=== PATIENT | female | born 1980 | race Caucasian/White ===

== ENCOUNTER 2017-10-10 12:02 | Emergency (ER) | END 2017-10-10 13:45 | disposition home or self-care (01) ==

== ENCOUNTER 2018-01-03 22:50 | Emergency (ER) | END 2018-01-04 03:16 | disposition home or self-care (01) ==

== ENCOUNTER 2019-02-10 14:50 | Emergency (ER) | payer MEDICAID ==
[~2019-02-10] VITALS: Ht 154.9 cm; Wt 60.6 kg
[~2019-02-10 14:50] MED LIST: ACET325T33 PO; AMOX500C2 PO; BEN25 PO; CEPH-443 PO; CETI10CA PO; IBUP-1542 PO
[2019-02-10 15:18] VITALS: BP 112/58; PULSE 73; RESP 16; Ht 154.9 cm; Wt 60.6 kg
--- NOTE | 2019-02-10 17:45 | ERD ---
ER Documentation Chief Complaint Chief Complaint pelvic pain x3d. no VB, no NVD. 5 wks . HPI This is a 38-year-old female patient who presents emergency room with complaint of lower pelvis pain. She is 5 weeks . Denies vaginal bleeding, no vaginal discharge, no nausea, no vomiting, no fevers. ROS All systems reviewed and are negative except as per history of present illness. Medications Home Meds Active Scripts Cephalexin* (Keflex*) 500 Mg Capsule, 500 MG PO BID for 7 Days, #14 CAP Prov:GERARDO BRYAN NP 02/10/19 Diphenhydramine Hcl* (Benadryl*) 25 Mg Cap, 25 MG PO Q6, #30 CAP Prov:RONNY,CONCEPCIÓN 01/04/18 Cetirizine Hcl* (Zyrtec*) 10 Mg Capsule, 10 MG PO DAILY, #10 TAB.CHEW Prov:RONNY,CONCEPCIÓN 01/04/18 Amoxicillin* (Amoxicillin*) 500 Mg Cap, 500 MG PO TID for 10 Days, CAP Prov:JESSE MARIE MD 10/10/17 Ibuprofen* (Motrin*) 600 Mg Tab, 600 MG PO Q6, #15 TAB Prov:JESSE MARIE MD 10/10/17 Allergies Allergies: Coded Allergies: No Known Allergy (Unverified , 02/10/19) PMhx/Soc Medical and Surgical Hx: pt denies Medical Hx, pt denies Surgical Hx Hx Alcohol Use: No Hx Substance Use: No Hx Tobacco Use: No Smoking Status: Never smoker Physical Exam Vitals Vital Signs Date Temp Pulse Resp B/P (MAP) Pulse Ox O2 O2 Flow FiO2 Time Delivery Rate 02/10/19 98.2 73 16 112/58 99 15:18 (76) Physical Exam Const: No acute distress Head: Atraumatic Eyes: Normal Conjunctiva ENT: Normal External Ears, Nose and Mouth. Neck: Full range of motion. No meningismus. Resp: Clear to auscultation bilaterally Cardio: Regular rate and rhythm, no murmurs Abd: Soft, tender to palpation @ RLQ/LLQ, non distended. Normal bowel sounds, no organomegaly Skin: No petechiae or rashes Back: No midline or flank tenderness, no CVT Neur: Awake and alert Psych: Normal Mood and Affect Result Diagram: 02/10/19 1643 Results 24 hrs Laboratory Tests Test 02/10/19 16:43 White Blood Count 8.6 10^3/ul Red Blood Count 4.47 10^6/ul Hemoglobin 12.9 g/dl Hematocrit 39.6 % Mean Corpuscular Volume 88.6 fl Mean Corpuscular Hemoglobin 28.9 pg Mean Corpuscular Hemoglobin Concent 32.6 g/dl Red Cell Distribution Width 14.8 % Platelet Count 286 10^3/UL Mean Platelet Volume 10.8 fl Immature Granulocytes % 0.200 % Neutrophils % 61.9 % Lymphocytes % 30.0 % Monocytes % 6.2 % Eosinophils % 1.4 % Basophils % 0.3 % Nucleated Red Blood Cells % 0.0 /100WBC Immature Granulocytes # 0.020 10^3/ul Neutrophils # 5.3 10^3/ul Lymphocytes # 2.6 10^3/ul Monocytes # 0.5 10^3/ul Eosinophils # 0.1 10^3/ul Basophils # 0.0 10^3/ul Nucleated Red Blood Cells # 0.0 10^3/ul Urine Color YELLOW Urine Clarity SLIGHTLY CLOUDY Urine pH 5.0 Urine Specific [place] 1.010 Urine Ketones NEGATIVE mg/dL Urine Nitrite NEGATIVE mg/dL Urine Bilirubin NEGATIVE mg/dL Urine Urobilinogen NEGATIVE mg/dL Urine Leukocyte Esterase TRACE Nita/ul Urine Microscopic RBC 1 /HPF Urine Microscopic WBC 5 /HPF Urine Squamous Epithelial Cells FEW /HPF Urine Bacteria MODERATE /HPF Urine Mucus FEW /HPF Urine Hemoglobin NEGATIVE mg/dL Urine Glucose NEGATIVE mg/dL Urine Total Protein NEGATIVE mg/dl Beta HCG, Quantitative 4795.5 mIU/ml Procedures/MDM PROCEDURES/MDM DIAGNOSTIC IMAGING: Read by radiologist. IMPRESSION: Possible early intrauterine at 5 weeks and 1 day. No pole or yolk sac is yet visualized. Close followup ultrasound and hCG is recommended. PROCEDURES: none LAB INTERPRETATION: No leukocytosis, no anemia, hCG quant low for gestational age, Trace leuks, microscopic white blood cells and RBC -Medications: None. Patient declining Tylenol for pain. MDM: Patient remained stable throughout the ER course. Patient presents with lower pelvic pain in early . Differential includes early normal , ectopic , failed . She will discharged home with recommendations for 2-day recheck of hormones to further evaluate low hormone levels for gestational age. She is to return sooner for fevers, hemorrhaging, new worsening symptoms. Current signs or symptoms do not suggest appendicitis, acute surgical abdomen, additional concerning signs or symptoms or conditions. There is low suspicion for pyelonephritis, vaginitis, STI, or interstitial cystitis due to absence of clinical findings that would support a diagnosis more serious than uncomplicated UTI. These diagnoses have been considered and excluded clinically. The patient was stable with no new complaints during the ER course. Clinically, there is no current evidence to suggest meningitis, sepsis, acute abdomen, pneumonia, stroke, acute coronary syndrome, pulmonary embolism, aortic dissection or any other emergent condition appearing to require further evaluation or hospitalization. Patient counseled regarding my diagnostic impr ession and care plan. Prior to discharge all questions answered. Pt agrees with treatment plan and understands strict return precautions. Pt is instructed to follow up with primary care provider within 24-48 hours. Precautionary instructions provided including instructions to return to the ER if not improving or for any worsening or changing symptoms or concerns. DISPOSITION and PLAN: RX: Keflex The patient has been discharge home to follow-up with community physician. Departure Diagnosis: Primary Impression: Cystitis Additional Impression: First trimester bleeding Condition: Stable Patient Instructions: Cystitis, Abdominal Pain, Early Referrals: [facility] Usted se damian hecho un examen mdico de control que le indica que no est en servando condicin que requiera tratamiento urgente en el Departamento de Emergencia. Un estudio ms profundo y el tratamiento de stern condicin pueden esperar sin ningn riesgo hasta que usted sea atendida/o en el consultorio de stern mdico o servando clnica. Es responsabilidad suya arreglar servando leti para el seguimiento del lea. MANEJO DE CONDICIONES NO URGENTES EN EL FUTURO 1) Si usted tiene un mdico de atencin primaria: Usted debera llamar a stern mdico de atencin primaria antes de venir al departamento de emergencia. Despus de las horas de consultorio, stern doctor o stern asociado/a est disponible por telfono. El mdico o enfermero de ritika en el servicio telefnico puede asesorarle por adriana medio para atender el problema, o lea contrario se puede programar servando leti. 2) Si usted no tiene un mdico de atencin primaria: Llame al mdico o clnica de referencia que aparece abajo emani las horas de consultorio para hacer servando leti para que le vean. CLINICAS: [facility] [phone] [facility] [phone] [facility] [phone] [facility] [phone] [facility] [phone] [facility] [phone] [address] [facility]. [facility] () Usted se damian hecho un examen mdico de control que le indica que no est en servando condicin que requiera tratamiento urgente en el Departamento de Emergencia. Un estudio ms profundo y el tratamiento de stern condicin pueden esperar sin ningn riesgo hasta que usted sea atendida/o en el consultorio de stern mdico o servando clnica. Es responsabilidad suya arreglar servando leti para el seguimiento del lea. MANEJO DE CONDICIONES NO URGENTES EN EL FUTURO 1) Si usted tiene un mdico de atencin primaria: Usted debera llamar a stern mdico de atencin primaria antes de venir al departamento de emergencia. Despus de las horas de consultorio, stern doctor o stern asociado/a est disponible por telfono. El mdico o enfermero de ritika en el servicio telefnico puede asesorarle por adriana medio para atender el problema, o lea contrario se puede programar servando leti. 2) Si usted no tiene un mdico de atencin primaria: Llame al mdico o condado institucions de referencia que aparece abajo emani las horas de consultorio para hacer servando leti para que le vean. SI USTED NO PUEDE PAGAR PARA AUGIE UN MEDICO puede ir a: [facility] [address] [place] [address] [facility] [address] [place] [address] [facility] [address] [place] [address] [address] [facility] [address] [place], [place] [id number] DIRECTOR FUNDRA[employer] [place] [address] [facility] [address] [place] [address] OFFICE FAX [facility] [address] [place] [address] [facility] [address] [place] [address] [address] [facility], [facility] [address] [facility], [facility] [address] [address] [facility] [address] [place] [address] [facility] [address] [place] [address] [address] [facility] [address] - [address] [facility] [address] [address] [place], [place] [address] [facility] [address], [facility] [address] [address] [facility] [address] [place] [address] Additional Instructions: Llame al doctor MAANA y savannah servando LETI PARA DENTRO DE 1-2 SCHULZ.Dgale a la secretaria que nosotros le instruimos hacer esta leti.Avise o llame si stern condicin se empeora antes de la leti. Regresa aqui si peor o no mejor. GERARDO BRYAN NP Feb 10, 2019 17:45
== END 2019-02-10 18:11 | disposition home or self-care (01) ==
LOC: FTE 14:50
DX: O23.11 Infections of bladder in pregnancy, first trimester (principal); O20.9 Hemorrhage in early pregnancy, unspecified; R10.2 Pelvic and perineal pain; Z3A.01 Less than 8 weeks gestation of pregnancy
CPT/HCPCS: 36415; 76801; 81001; 84702; 85025; 86900; 86901; Z7502

== ENCOUNTER 2019-02-24 01:29 | Emergency (ER) | payer MEDICAID ==
[~2019-02-24] VITALS: Ht 157.5 cm; Wt 61.5 kg
[2019-02-24 01:32] VITALS: BP 137/72; PULSE 70; RESP 18; Ht 157.5 cm; Wt 61.5 kg
[2019-02-24] MEDS ORDERED: ACETAMINOPHEN 325 MG TAB PO STA (01:51)
--- NOTE | 2019-02-24 03:20 | ERD ---
ER Documentation Chief Complaint Chief Complaint C/O PELVIC PAIN SINCE 2099, 7 WEEKS PREG HPI Patient is a 38-year-old female with no medical problems who presents with pelvic pain. Please note that a video candy forming machine operator was used for the entire history and physical exam. The patient describes it starting at 9 PM she had a "pinching" type pain. She said that she is 6 weeks . The pain was constant and sharp. She has had no treatment as of yet. She has no fevers. She was seen on February 10 for similar type pain. Upon review of old medical records this is the patient's fourth visit to the ER since 2017. ROS All systems reviewed and are negative except as per history of present illness. Medications Home Meds Active Scripts Acetaminophen* (Tylenol*) 325 Mg Tablet, 2 TAB PO Q8 PRN for PAIN AND OR ELEVATED TEMP, #20 TAB Prov:AREN LEW MD 02/24/19 Cephalexin* (Keflex*) 500 Mg Capsule, 500 MG PO BID for 7 Days, #14 CAP Prov:GERARDO BRYAN NP 02/10/19 Diphenhydramine Hcl* (Benadryl*) 25 Mg Cap, 25 MG PO Q6, #30 CAP Prov:RONNY,CONCEPCIÓN 01/04/18 Cetirizine Hcl* (Zyrtec*) 10 Mg Capsule, 10 MG PO DAILY, #10 TAB.CHEW Prov:RONNY,CONCEPCIÓN 01/04/18 Amoxicillin* (Amoxicillin*) 500 Mg Cap, 500 MG PO TID for 10 Days, CAP Prov:JESSE MARIE MD 10/10/17 Ibuprofen* (Motrin*) 600 Mg Tab, 600 MG PO Q6, #15 TAB Prov:JESSE MARIE MD 10/10/17 Allergies Allergies: Coded Allergies: No Known Allergy (Unverified , 02/10/19) PMhx/Soc Medical and Surgical Hx: pt denies Medical Hx, pt denies Surgical Hx Hx Alcohol Use: No Hx Substance Use: No Hx Tobacco Use: No Smoking Status: Never smoker FmHx Family History: No diabetes Physical Exam Vitals Vital Signs Date Temp Pulse Resp B/P (MAP) Pulse Ox O2 O2 Flow FiO2 Time Delivery Rate 02/24/19 97.5 70 18 137/72 97 01:32 (93) Physical Exam Const: No acute distress Head: Atraumatic Eyes: Normal Conjunctiva ENT: Normal External Ears, Nose and Mouth. Neck: Full range of motion. No meningismus. Resp: Clear to auscultation bilaterally Cardio: Regular rate and rhythm, no murmurs Abd: Soft, non tender, non distended. Normal bowel sounds Skin: No petechiae or rashes Back: No midline or flank tenderness Ext: No cyanosis, or edema Neur: Awake and alert Psych: Normal Mood and Affect Result Diagram: 02/24/198 02/24/19 0158 Results 24 hrs Laboratory Tests Test 02/24/19 01:58 White Blood Count 9.9 10^3/ul Red Blood Count 4.23 10^6/ul Hemoglobin 12.3 g/dl Hematocrit 36.6 % Mean Corpuscular Volume 86.5 fl Mean Corpuscular Hemoglobin 29.1 pg Mean Corpuscular Hemoglobin Concent 33.6 g/dl Red Cell Distribution Width 15.1 % Platelet Count 256 10^3/UL Mean Platelet Volume 10.2 fl Immature Granulocytes % 0.400 % Neutrophils % 63.3 % Lymphocytes % 27.6 % Monocytes % 7.4 % Eosinophils % 1.0 % Basophils % 0.3 % Nucleated Red Blood Cells % 0.0 /100WBC Immature Granulocytes # 0.040 10^3/ul Neutrophils # 6.3 10^3/ul Lymphocytes # 2.7 10^3/ul Monocytes # 0.7 10^3/ul Eosinophils # 0.1 10^3/ul Basophils # 0.0 10^3/ul Nucleated Red Blood Cells # 0.0 10^3/ul Urine Color STRAW Urine Clarity CLEAR Urine pH 6.0 Urine Specific [place] 1.005 Urine Ketones NEGATIVE mg/dL Urine Nitrite NEGATIVE mg/dL Urine Bilirubin NEGATIVE mg/dL Urine Urobilinogen NEGATIVE mg/dL Urine Leukocyte Esterase NEGATIVE Nita/ul Urine Hemoglobin NEGATIVE mg/dL Urine Glucose NEGATIVE mg/dL Urine Total Protein NEGATIVE mg/dl Sodium Level 138 mmol/L Potassium Level 3.6 mmol/L Chloride Level 105 mmol/L Carbon Dioxide Level 24 mmol/L Anion Gap 9 Blood Urea Nitrogen 8 mg/dl Creatinine 0.50 mg/dl Est Glomerular Filtrat Rate mL/min > 60 mL/min Glucose Level 92 mg/dl Calcium Level 9.4 mg/dl Total Bilirubin 0.5 mg/dl Direct Bilirubin 0.00 mg/dl Indirect Bilirubin 0.5 mg/dl Aspartate Amino Transf (AST/SGOT) 21 IU/L Alanine Aminotransferase (ALT/SGPT) 21 IU/L Alkaline Phosphatase 54 IU/L Total Protein 7.6 g/dl Albumin 4.2 g/dl Globulin 3.40 g/dl Albumin/Globulin Ratio 1.23 Lipase 52 U/L Current Medications Medications Dose Sig/Bessie Start Time Status Last (Trade) Ordered Route PRN Stop Time Admin Dose Reason Admin 650 mg ONCE STAT 02/24/19 DC 02/24/19 Acetaminophen PO 01:51 02/24/19 02:12 (Tylenol 01:52 Tab) Procedures/MDM Ultrasound of the pelvis read by radiology shows a 6-week fetus with heart tones. Patient is a 38-year-old female with no medical problems who presents with a pinching type pelvic pain. Laboratory studies are normal. Urinalysis shows no sign of infection. Ultrasound of the pelvis shows a fetus with heart tones. I believe outpatient management is appropriate at this time. I doubt serious surgical etiology at this time such as appendicitis, cholecystitis, pancreatitis, or bowel obstruction. I believe outpatient management is appropriate but the patient will need close follow-up with her primary doctor within 24 to 48 hours. The patient will be given Tylenol for pain. Departure Diagnosis: Primary Impression: Pelvic pain Condition: Fair Patient Instructions: Abdominal Pain, Early Referrals: Your OB doctor Additional Instructions: Llame al doctor MAANA y savannah servando LETI PARA DENTRO DE 1-2 SCHULZ.Dgale a la secretaria que nosotros le instruimos hacer esta leti.Avise o llame si stern condicin se empeora antes de la leti. Regresa aqui si peor o no mejor. AREN LEW MD Feb 24, 2019 03:20
== END 2019-02-24 02:39 | disposition home or self-care (01) ==
LOC: FTE 01:29
DX: O26.891 Other specified pregnancy related conditions, first trimester (principal); R10.2 Pelvic and perineal pain; Z3A.01 Less than 8 weeks gestation of pregnancy
CPT/HCPCS: 36415; 76801; 80053; 81003; 83690; 84702; 85025; 86900; 86901; Z7502; Z7610